=== PATIENT | female | born 1955 | race Caucasian/White ===

== ENCOUNTER 2020-03-15 09:14 | Day surgery (SDC) | payer MEDICARE, MEDICAID ==
[~2020-03-15] VITALS: Ht 167.6 cm; Wt 93.9 kg
[~2020-03-15 09:14] MED LIST: ACET-812 PO; AMLO2.5T2 PO; BUPR100T5 PO; CITA20TA28 PO; FENO54TA4 PO; FISH1CAP15 PO; LIRA0.6P2 SUBCUT; METF1000 PO; METO50TA7 PO; MULT-38 PO; OMEP20TA5 PO; RIVA20TA PO; VALS320T17 PO
[2020-03-15] MEDS ORDERED: MIDAZolam 1mg/ml 10ml vial IV ONE (10:10)
[2020-03-15] MEDS ORDERED: fentaNYL/PF 50MCG/1 ML 2ML syringe IV ONE (10:10)
[2020-03-15] MEDS ORDERED: normal saline 1000ml 1,000 ML IV SCH (10:10)
[2020-03-15] MEDS ORDERED: OXYC-138 PO (10:35)
[2020-03-15] MEDS ORDERED: BUPR-319 PO (10:35)
[2020-03-15] MEDS ORDERED: RIVA15TA PO (10:35)
[2020-03-15] MEDS ORDERED: CHOL10006 PO (10:35)
[2020-03-15] MEDS ORDERED: ICOS1CAP PO (10:35)
[2020-03-15] MEDS ORDERED: IRBE300T18 PO (10:35)
[2020-03-15] MEDS ORDERED: METO100T7 PO (10:35)
[2020-03-15] MEDS ORDERED: DIPH25CA83 PO (10:35)
[2020-03-15] MEDS ORDERED: FLEC100T35 PO (10:35)
[2020-03-15] MEDS ORDERED: LANTUS SQ (10:35)
[2020-03-15] MEDS ORDERED: AMLO10TA PO (10:35)
[2020-03-15] MEDS ORDERED: TIZA4CAP PO (10:35)
[2020-03-15] MEDS ORDERED: ROSU40TA PO (10:35)
[2020-03-15] MEDS ORDERED: MULT-381 PO (10:35)
[2020-03-15] MEDS ORDERED: HYDR12.55 PO (10:35)
[2020-03-15] MEDS ORDERED: ASPI-1265 PO (10:35)
[2020-03-15] MEDS ORDERED: LIRA0.6P SQ (10:35)
[2020-03-15] MEDS ORDERED: CITA40TA22 PO (10:35)
== END 2020-03-15 11:00 | disposition home or self-care (01) ==
LOC: SSTAY O 09:14
PROVIDERS: ATTEND Internal Medicine Cardiovascular Disease
DX: I48.3 Typical atrial flutter (principal); Z53.8 Procedure and treatment not carried out for other reasons; I48.0 Paroxysmal atrial fibrillation; E78.5 Hyperlipidemia, unspecified; K21.9 Gastro-esophageal reflux disease without esophagitis; F43.10 Post-traumatic stress disorder, unspecified; F32.9 Major depressive disorder, single episode, unspecified; E11.22 Type 2 diabetes mellitus with diabetic chronic kidney disease; I12.9 Hypertensive chronic kidney disease with stage 1 through stage 4 chronic kidney disease, or unspecified chronic kidney disease; N18.9 Chronic kidney disease, unspecified; Z79.899 Other long term (current) drug therapy; Z87.19 Personal history of other diseases of the digestive system; Z90.49 Acquired absence of other specified parts of digestive tract; Z90.710 Acquired absence of both cervix and uterus; Z88.8 Allergy status to other drugs, medicaments and biological substances; Z98.890 Other specified postprocedural states; Z82.3 Family history of stroke; Z82.49 Family history of ischemic heart disease and other diseases of the circulatory system
CPT/HCPCS: 93005